=== PATIENT | male | born 1985 | race Caucasian/White ===

== ENCOUNTER 2021-12-13 20:04 | Emergency (ER) | payer SELFPAY ==
[~2021-12-13] VITALS: Ht 165.1 cm; Wt 68.2 kg
[2021-12-13 20:10] VITALS: TEMP 98.3
[2021-12-13 21:04] LABS: COLLECTION METHOD CLEAN CATCH
[2021-12-13 21:13] LABS: HEMATOCRIT 40.2 % (42.0-52.0); HEMOGLOBIN 13.6 g/dl (13.5-18.0); MEAN CELL VOLUME 91 fl (80.0-100.0); MEAN CORPUSCULAR HEMOGLOBIN 31 pg (27-31); MEAN CORPUSCULAR HGB CONC 34 g/dl (33.0-37.0); MEAN PLATELET VOLUME 10.1 fl (7.4-10.4); PLATELET COUNT 287 K/mm3 (130-400)
[2021-12-13 21:19] LABS: TRICYCLIC ANTIDEPRESS URINE NEGATIVE
[2021-12-13 21:23] LABS: AMORPHOUS CRYSTAL Present (NOT PRESENT); PH 6 (5-8); SQUAMOUS EPITHELIAL None Seen /hpf (0-10); URINE APPEARANCE Cloudy (CLEAR/HAZY); URINE BACTERIA None Seen /hpf (NONE SEEN); URINE BILIRUBIN Negative (NEGATIVE); URINE BLOOD Negative (NEGATIVE); URINE COLOR Yellow (YELLOW); URINE GLUCOSE Negative (NEGATIVE); URINE KETONE Negative (NEGATIVE); URINE LEUKOCYTE ESTERASE Negative (NEGATIVE); URINE NITRATE Negative (NEGATIVE); URINE PROTEIN(semi-quant) Negative (NEGATIVE); URINE RBC 0-2 /hpf (0-2)
[2021-12-13 21:25] LABS: ALBUMIN 3.9 gm/dL (3.5-5.0); BILIRUBIN,TOTAL 0.2 mg/dL (0.2-1.2); CALCIUM 8.9 mg/dL (8.4-10.2); CREATININE, serum 0.8 mg/dL (0.72-1.25); POTASSIUM 4.1 mmol/L (3.5-4.5); TOTAL PROTEIN 6.7 gm/dL (6.2-8.1)
[2021-12-13 21:38] LABS: BAND 1 % (0-10); EOSINOPHIL 7 % (0-4); LYMPHOCYTE 32 % (20.0-51.0); METAMYELOCYTE 1 % (0-0); NEUTROPHILS 49 % (42.0-75.2); PLATELET ESTIMATE NORMAL (NORMAL)
[2021-12-13 23:05] VITALS: BP 137/87; PULSE 86
== END 2021-12-13 23:06 | disposition home or self-care (01) ==
LOC: COL.ER 20:04
PROVIDERS: Student in an Organized Health Care Education/Training Program
DX: K59.00 Constipation, unspecified (principal); R11.0 Nausea; F17.210 Nicotine dependence, cigarettes, uncomplicated; Z28.310 Unvaccinated for COVID-19
CPT/HCPCS: J2270; J2405; J7030; Q9967

== ENCOUNTER 2021-12-31 13:11 | Emergency (ER) | payer SELFPAY ==
[~2021-12-31] VITALS: Ht 167.6 cm; Wt 79.5 kg
[2021-12-31 13:14] VITALS: BP 122/78; PULSE 107; TEMP 97.7
[2021-12-31] MEDS ORDERED: NORCO 325 MG-51 TAB PO (13:30)
[2021-12-31] MEDS ORDERED: AMOXICILLIN 50500 MG PO (13:30)
== END 2021-12-31 13:41 | disposition home or self-care (01) ==
LOC: COL.ER 13:11
DX: K02.9 Dental caries, unspecified (principal); F17.210 Nicotine dependence, cigarettes, uncomplicated; Z28.310 Unvaccinated for COVID-19; Y04.0XXA Assault by unarmed brawl or fight, initial encounter

== ENCOUNTER 2022-02-02 17:24 | Emergency (ER) | payer SELFPAY ==
[~2022-02-02] VITALS: Ht 167.6 cm; Wt 90.9 kg
[~2022-02-02 17:24] MED LIST: AMOXICILLIN 50500 MG PO; NORCO 325 MG-51 TAB PO
[2022-02-02 17:27] VITALS: BP 126/76; PULSE 82; TEMP 98.6
[2022-02-02] MEDS ORDERED: NORCO 325 MG-51 TAB PO (17:58)
== END 2022-02-02 18:25 | disposition home or self-care (01) ==
LOC: COL.ER 17:24
DX: S42.401A Unspecified fracture of lower end of right humerus, initial encounter for closed fracture (principal); F17.200 Nicotine dependence, unspecified, uncomplicated; Z28.310 Unvaccinated for COVID-19; W18.39XA Other fall on same level, initial encounter; W22.8XXA Striking against or struck by other objects, initial encounter

== ENCOUNTER 2022-03-19 17:46 | Emergency (ER) | payer SELFPAY ==
[~2022-03-19] VITALS: Ht 167.6 cm; Wt 72.7 kg
[2022-03-19 18:25] VITALS: BP 108/68; PULSE 97; TEMP 98.8
== END 2022-03-19 19:35 | disposition left against medical advice (07) ==
LOC: COL.ER 17:46
DX: S81.811A Laceration without foreign body, right lower leg, initial encounter (principal); W22.8XXA Striking against or struck by other objects, initial encounter

== ENCOUNTER 2024-02-22 03:12 | Emergency (ER) | payer SELFPAY ==
[~2024-02-22] VITALS: Ht 170.2 cm; Wt 72.7 kg
[~2024-02-22 03:12] MED LIST changes: +NEURONTIN300 MG/CAP PO
[2024-02-22 03:14] VITALS: BP 144/75; PULSE 111; TEMP 98
== END 2024-02-22 03:46 | disposition home or self-care (01) ==
LOC: COL.ER 03:12
DX: S61.412A Laceration without foreign body of left hand, initial encounter (principal); F17.210 Nicotine dependence, cigarettes, uncomplicated; Z98.890 Other specified postprocedural states; W26.0XXA Contact with knife, initial encounter